=== PATIENT | female | born 1980 | race Caucasian/White ===

== ENCOUNTER 2019-11-07 10:54 | Outpatient (CLI) | payer BC, SELFPAY ==
[2019-11-07 12:01] LABS: Blood Urea Nitrogen 15 mg/dL (7-17); Calcium 9.1 mg/dL (8.4-10.2); Carbon Dioxide 23 mmol/L (22-30); Chloride 104 mmol/L (98-107); Estimated Glomerular Filt Rate > 60; Glucose 85 mg/dL (65-105); Potassium 4.3 mmol/L (3.4-5.0); Sodium 138 mmol/L (137-145)
[2019-11-07 12:37] LABS: Free T4 Free Thyroxine 0.99 ng/mL (0.78-2.19)
[2019-11-07 12:46] LABS: Beta HCG Quantitative < 2.39 mIU/ML
[2019-11-11 06:54] LABS: Triiodothyronine T3 Free 2.6 pg/mL (2.3-4.2)
== END 2019-11-07 10:55 | disposition home or self-care (01) ==
PROVIDERS: PCP Internal Medicine Endocrinology, Diabetes & Metabolism; Visit Provider Internal Medicine Endocrinology, Diabetes & Metabolism
DX: R89.9 Unspecified abnormal finding in specimens from other organs, systems and tissues (principal); E04.9 Nontoxic goiter, unspecified
CPT/HCPCS: 36415; 80048; 84439; 84443; 84481; 84702